=== PATIENT | male | born 1945 | race Caucasian/White ===

== ENCOUNTER 2024-03-08 11:52 | Outpatient (AMB) | payer MEDICARE, MEDICAID, SELFPAY ==
--- NOTE | 2024-03-08 12:01 | A.OFFVIS_ITS ---
VS Expanded 03/13/24 13:53 Height 5 ft 6 in Weight 180 lb BMI 29.0 Intake Visit Reasons: Congestive heart failure Nutrition Presentation Details: Pt present fo [facility] for CHF, instruction of low sodium food concepts PT resides in [facility] Staff reports current diet is low in sodium and is also on 1500 ml fluid restr iction , staff reports weight is stable at 180 lbs . Pt participates of 3 meals per day and is eating 100% of the meals. B varies : bowl of cereal rice krispies with wth 4oz milk, 4 oz black coffee and apple juice snack on pudding lunch: ham sand and low sodium ham or low sodium soup dinner: [place] chop suey or chicken , mashed potato/peas has fruits 1-2 /d as snack or yogurt or pudding fish : 1x/wk vegetables : daily 2 serivng/d dairy 2-3 jorge luis per day wt in Oct 2023 at 180 lbs Pt came in wheelchair BS Monitoring Most Recent Diabetes Results: No Data to Display Assessment & Plan Assessment & Plan (1) CHF (congestive heart failure): Code(s): I50.9 - Heart failure, unspecified Category: Medical Plan: Wt: 82 Kg ( 10/2023 ) Est kcal needs as per 25-kcal/kg bw: 2100 (40% carb, 30% protein/fat) Est fluid needs as per 25 ml/d: 2100 (NOTE Pt on 1500 ml fluid restriction) Est prot per day as per 1 g/kg bw: 82 Recommend fiber intake : 8-10 g per day and gradually increase to 25-28 g per day for women and 35-38 g for men or as tolerated Recommend sodium intake per day: low sodium food concepts Educated patient on: ( R = reviewed V = verbalizes understanding N/R = needs review N/A = not applicable * Food sources of carbohydrate, adequate serving sizes and its role in various health conditions: R V N/R * Differences between complex carbohydrates a simple carbohydrates, role of fiber in diet: R V N/R * Lean protein sources of foods: R V NR * Differences between types of fats and role in diet (mono on saturated fat fatty acids, saturated fatty acids, trans fats): R V N/R * Food sources of sodium in salt and healthy modifications for heart health in kidney health: R V * Vitamins and minerals: R V N/R * Healthy plate method concept: R V N/R * Physical activity: Benefits a precaution: R V N/R * Hypoglycemia protocol (rule of 15): R V N/R * Dietary prevention of Hyperglycemia: R V R/V Patient Instructions: Follow low sodium food concepts , no added salt in diet Read food label and work towards reducing sodium to less than 600 mg per meal (3 meals/day provide snack with no sodium /salt added such as fruits in between meals. see list of low sodium concepts from [facility] provided Coding Level of Care Code Nutr Indiv Intake (51577) Diagnoses CHF (congestive heart failure) I50.9 Time Spent (min) 30
[2024-03-13 13:53] VITALS: BMI 29.0
== END 2024-03-08 12:28 | disposition home or self-care (01) ==
PROVIDERS: PCP Physician Assistant; Visit Provider Dietitian, Registered
DX: I50.9 Heart failure, unspecified (principal)

== ENCOUNTER → 2024-03-08 11:52 | Outpatient (BNVA) | payer MEDICARE, MEDICAID, SELFPAY | PROVIDERS: PCP Physician Assistant; Visit Provider Dietitian, Registered | DX: I50.9 Heart failure, unspecified (principal) | CPT/HCPCS: 97802 ==